=== PATIENT | male | born 1950 | race Caucasian/White ===

== ENCOUNTER → 2018-06-25 | Outpatient (CLI) | payer MEDICARE ==
[2018-06-25 14:21] LABS: Basophils # (A) 0.1 k/uL (0-0.2); Basophils % (A) 1 %; Eosinophils # (A) 0.2 k/uL (0-0.7); Eosinophils % (A) 2 %; HCT 39.7 % (39.0-53.0); HGB 13.1 gm/dL (13.0-17.5); Lymphocytes # (A) 1.9 k/uL (1.0-4.8); Lymphocytes % (A) 26 %; MCH 33.7 pg (25.0-35.0); MCHC 33.1 g/dL (31.0-37.0); MCV 101.8 fL (80.0-100.0); Macrocytosis Slight; Mean Platelet Volume 7.3; Monocytes # (A) 0.5 k/uL (0-1.0); Monocytes % (A) 7 %; Neutrophils # (A) 4.4 k/uL (1.3-7.7); Neutrophils % (A) 61 %; Platelet Count 285 k/uL (150-450); RDW 12.5 % (11.5-15.5); WBC 7.2 k/uL (3.8-10.6)
[2018-06-25 15:39] LABS: Cholesterol 162 mg/dL (<200); HDL Cholesterol 57 mg/dL (40-60); LDL Cholesterol,Calculated 83 mg/dL (0-99); Triglycerides 109 mg/dL (<150)
[2018-06-25 16:11] LABS: Prostate Specific Antigen 0.74 ng/mL (0.00-4.00)
[2018-06-28 08:32] LABS: ALT 44 U/L (21-72); AST 33 U/L (17-59); Albumin 3.9 g/dL (3.5-5.0); Alkaline Phosphatase 85 U/L (38-126); Anion Gap 11 mmol/L; Blood Urea Nitrogen 16 mg/dL (9-20); Calcium 9.9 mg/dL (8.4-10.2); Carbon Dioxide 24 mmol/L (22-30); Chloride 108 mmol/L (98-107); Glucose 99 mg/dL (74-99); Potassium 4.7 mmol/L (3.5-5.1); Sodium 143 mmol/L (137-145); Total Bilirubin 0.6 mg/dL (0.2-1.3)
== END ==
LOC: LABWHC1 13:52
PROVIDERS: ATTEND Physician Assistant
DX: I10 Essential (primary) hypertension (principal)
CPT/HCPCS: 36415; 80053; 80061; 84153; 84439; 84443; 85025

== ENCOUNTER → 2018-06-25 | Outpatient (CLI) | payer MEDICARE ==
[2018-06-25 14:20] LABS: Appearance,Urine Clear (Clear); Bilirubin,Urine Negative (Negative); Blood,Urine Negative (Negative); Color,Urine Yellow; Glucose,Urine (UA) Negative (Negative); Ketones,Urine Negative (Negative); Leukocyte Esterase,Urine Negative (Negative); Nitrite,Urine Negative (Negative); Protein,Urine Negative (Negative); Specific Gravity,Urine 1.008 (1.001-1.035); Urobilinogen,Urine <2.0 mg/dL (<2.0)
[2018-06-25 14:30] LABS: INR 0.9 (<1.2); Partial Thromboplastin Time 23.2 sec (22.0-30.0); Prothrombin Time 9.4 sec (9.0-12.0)
[2018-06-25 14:31] LABS: ALT 44 U/L (21-72); AST 32 U/L (17-59); Albumin 4.1 g/dL (3.5-5.0); Alkaline Phosphatase 87 U/L (38-126); Anion Gap 11 mmol/L; Blood Urea Nitrogen 15 mg/dL (9-20); Calcium 9.9 mg/dL (8.4-10.2); Carbon Dioxide 25 mmol/L (22-30); Chloride 106 mmol/L (98-107); Glucose 97 mg/dL (74-99); Potassium 4.7 mmol/L (3.5-5.1); Sodium 142 mmol/L (137-145); Total Bilirubin 0.7 mg/dL (0.2-1.3); Total Protein 7.1 g/dL (6.3-8.2)
== END | disposition home or self-care (01) ==
LOC: LABPAT 13:18
PROVIDERS: ATTEND Orthopaedic Surgery
DX: Z01.818 Encounter for other preprocedural examination (principal)
CPT/HCPCS: 36415; 80053; 80061; 81003; 84153; 84439; 84443; 85025; 85610; 85730; 86850; 86900; 86901; 87070

== ENCOUNTER 2018-07-06 07:00 | Inpatient (IN) | payer MEDICARE ==
[2018-06-29 09:10] VITALS: BMI 31.6
[~2018-07-06 07:00] MED LIST: ACETAMINOPHEN TAB 500 MG TAB PO ONE; DEXAMETHASONE SOD PHOSPHATE 10 MG/ML 1 ML VIAL IV ONE; MELOXICAM 7.5 MG TAB PO ONE; MIDAZOLAM 2 MG/2 ML VIAL IV PRN; ONDANSETRON 4 MG/2 ML VIAL IVP ONE; ROPIVACAINE 246.25 MG, EPINEPHrine 0.5 MG, KETOROLAC 30 MG, cloNIDine HCL/PF 80 MCG, WA... MISCELLANE ONE; TRANEXAMIC ACID 1,000 MG in SODIUM CHLORIDE 0.9% 50 ML IVPB ONE; ceFAZolin IN SWFI 2 GM/20 ML SYRINGE IVP ONE; fentaNYL (PF) 50 MCG/ML 2 ML AMP IV PRN
[2018-07-06] MEDS ORDERED: DIAZEPAM 5 MG TAB PO PRN ×2 (09:07)
[2018-07-06] MEDS ORDERED: HYDROcodone/APAP 5-325MG 1 EACH TAB PO PRN (09:07)
[2018-07-06] MEDS ORDERED: ONDANSETRON 4 MG/2 ML VIAL IVP PRN (09:07)
[2018-07-06] MEDS ORDERED: NALOXONE 0.4 MG/ML 1 ML VIAL IV PRN (09:07)
[2018-07-06] MEDS ORDERED: MAGNESIUM HYDROXIDE 2,400 MG/10 ML CUP PO PRN (09:07)
[2018-07-06] MEDS ORDERED: HYDROmorphone 1 MG/ML 1 ML SYRINGE IVP PRN ×3 (09:07)
[2018-07-06] MEDS ORDERED: hydrOXYzine PAMOATE 25 MG CAP PO PRN (09:07)
[2018-07-06] MEDS: LACTATED RINGERS 1,000 ML IV SCH (09:21)
[2018-07-06] MEDS ORDERED: LIDOCAINE 1% 20 ML VIAL (10MG/ML) FOR IV START INTRADERMA ONE (09:21)
[2018-07-06] MEDS ORDERED: ceFAZolin 3,000 MG in SODIUM CHLORIDE 0.9% IRRIGATIO 3,000 ML IRRIGATION ONE (10:27)
[2018-07-06] MEDS ORDERED: LACTATED RINGERS 1,000 ML IV ONE (12:13)
--- NOTE | 2018-07-06 12:16 | P.OP ---
Date of Procedure: 07/06/18 Preoperative Diagnosis: Severe osteoarthritis right hip Postoperative Diagnosis: Severe osteoarthritis right hip Procedure(s) Performed: Right total hip arthroplasty with a direct anterior approach Implants: Haider and nephew Polarstem size 8 Lateral Haider [employer] Nephew R3, 3 hole acetabular shell, 56 mm [employer] Nephew reflection 6.5 mm cancellus screw, 20 mm 2 Haider [employer] Nephew R3, XLPE 20 acetabular liner Haider [employer] Nephew Oxinium femoral head 36 m, +0 All components were press-fit. The articulation is Oxinium on polyethylene. Anesthesia: spinal Surgeon: Jaime Blackburn Substance Abuse Therapist #1: Malia Brasher Estimated Blood Loss (ml): 100 Pathology: other (Femoral head) Condition: stable Disposition: PACU Indications for Procedure: After failure of conservative treatment we discussed the surgical and nonsurgical treatment options at length. Patient wishes to proceed with a total hip arthroplasty with a direct anterior approach. Complications specific to this procedure were discussed at length, including but not limited to infection, leg length discrepancy, dislocation, and nerve injury. Patient is aware of all these complications and informed consent was obtained Operative Findings: The operative findings are consistent with severe osteoarthritis of the right hip Description of Procedure: Patient was seen and evaluated in the preoperative area, consent was reviewed, and the surgical site was marked with a skin marker. Patient was then brought to the operating room and given prophylactic antibiotics intravenously. 1 g of Tranexamic acid was also given. A spinal anesthetic was administered by the anesthesia department. The patient was then placed on the Aurora table with the bony prominences well-padded. The hip area was then prepped and draped in usual sterile fashion. A universal timeout was then performed, which confirmed the patient's name, surgical site, ALLERGIES, and procedure being performed. Next the incision site was located at 1 cm distal and 1 cm lateral to the anterior superior iliac spine. The skin and subcutaneous tissues were sharply incised. Incision was carefully dissected down to the fascia overlying the tensor fascia hai muscle. This fascia was then incised in line with the incision. Next, using blunt finger dissection, the tensor fascia hai muscle was dissected off its investing fascia. The muscle was then carefully retracted laterally with a cobra retractor over the lateral neck of the femur. Next, the circumflex vessels were identified and cauterized using the AquaMantis device. The anterior hip capsule was then exposed. The capsule was then opened and an inverted T fashion. Cobra retractors were then placed intracapsularly. The proximal femur was then visualized. The femoral neck was then osteotomized appropriate level above the lesser trochanter. Small amount of traction was placed with the Aurora table. A small wedge of bone was then removed from the remaining femoral head. Next, using a corkscrew femoral head was easily removed from the acetabulum. On gross visual inspection, the femoral head had complete loss of articular cartilage in multiple periarticular osteophytes. Attention was then turned to the acetabulum. the acetabulum was exposed and any remaining labrum was excised. Sequential reaming of the acetabulum was performed using fluoroscopic guidance. When the appropriate size was reached, a trial was then placed. The position and fit of the trial was checked with fluoroscopy. The trial was then removed. Then, using fluoroscopic guidance, the final implant was impacted at 20 of anteversion and 40 of abduction, and fully seated in the acetabulum. 2 screws were then placed in the acetabulum. Again fluoroscopy was used to check position of the screws. Next, the liner was then impacted, with a 20 elevated liner located in the anterior superior quadrant. Component locking was confirmed. Attention was then directed to the femur. With the aid of the Aurora table, the femur was externally rotated to approximately 130, extended, and abducted under the opposite leg. A side hook was then placed under the proximal femur, and the side hook elevator was used to elevate the proximal femur. Retractors were then placed. A capsular release was performed, as well as a release of the conjoined tendon, which afforded excellent visualization of the proximal femur. Next, a box osteotome was used to lateralize the proximal femur. A redye hand was then used to locate the femoral canal. Sequential broaching was then performed with appropriate size which afforded excellent fixation in the proximal femur. A trial was then placed with appropriate head and neck, and the hip was gently reduced with the aid of the Aurora table. Fluoroscopy was then used to check position of the components, as well as to ensure equal leg lengths. The hip was then gently dislocated and the trials were then removed. Final implants were then impacted and the hip was again reduced. Final fluoroscopic x-rays confirmed that the components were in anatomic position, as well as equal leg lengths. The hip was also taken through range of motion, and found to be stable. The hip was then copiously irrigated with antibiotic solution with pulsatile lavage. The hip was then irrigated with Irrisept solution. The soft tissues were then injected with a ropivacaine solution, which consisted of 246.25 mg of ropivacaine, 0.5 mg of epinephrine, 30 mg of Toradol, 80 g of clonidine, and 48.45 mL of sterile water, for a total of 100 mL of fluid injected. A second dose of 1 g of Tranexamic acid was also given. the fascia was then closed with 2-0 strata fix suture. The subcutaneous tissue was closed with 3-0 Vicryl. The subcuticular tissue was closed with 3-0 strata fix suture. The skin was then closed with Dermabond glue and a sterile silver dressing. The patient was then transferred to the recovery room in stable condition. The social research assistant ROSA Grimm was required due to the complexity of surgery, and the need for skilled surgical pathologist for positioning, draping, exposure, retraction, and closure of the wound.
--- NOTE | 2018-07-06 13:15 | XR ---
EXAMINATION TYPE: XR Hip Limited RT DATE OF EXAM: 07/06/2018 CLINICAL HISTORY: Right hip pain and osteoarthritis. TECHNIQUE: Single AP portable view of right hip is obtained immediately postoperatively. COMPARISON: None. FINDINGS: Metallic hardware from right hip arthroplasty is seen and appears satisfactory in alignment and position. Some acetabular irregular calcifications are present. IMPRESSION: Metallic hardware from right hip arthroplasty is satisfactory in position.
--- NOTE | 2018-07-06 17:39 | P.CONS ---
History of Present Illness - History of Present Illness 67-year-old male resting comfortably in bed pain is being managed well. Patient instructed to use incentive spirometry. Patient does have a history of hypertension. Patient is postoperative for right total hip anterior approach Review of Systems Musculoskeletal: right: hip pain Past Medical History Past Medical History: Hypertension, Osteoarthritis (OA) History of Any Multi-Drug Resistant Organisms: None Reported Past Surgical History: Orthopedic Surgery Additional Past Surgical History / Comment(s): bilat ctr, lt arm sx, bilat hand trigger finger releases, lt knee sx, colonoscopy Past Anesthesia/Blood Transfusion Reactions: No Reported Reaction Past Psychological History: No Psychological Hx Reported Smoking Status: Former smoker Past Alcohol Use History: Occasional Additional Past Alcohol Use History / Comment(s): QUIT SMOKING 2015 Past Drug Use History: None Reported - Past Family History Mother Family Medical History: No Reported History Medications and Allergies Home Medications Medication Instructions Recorded Confirmed Type Losartan Potassium 100 mg PO DAILY 06/29/18 07/06/18 History Allergies Allergy/AdvReac Type Severity Reaction Status Date / Time No Known Allergies Allergy Verified 07/06/18 13:48 Physical Exam Vitals: Vital Signs Temp Pulse Pulse Pulse Resp BP BP 07/06/18 14:53 62 115/67 07/06/18 14:45 79 105/59 07/06/18 14:30 79 104/65 07/06/18 14:15 74 99/59 07/06/18 14:00 84 107/60 07/06/18 13:45 75 103/56 07/06/18 13:30 66 98/57 07/06/18 13:15 70 95/52 07/06/18 13:10 78 16 116/56 07/06/18 13:00 97.8 F 62 16 101/55 07/06/18 12:55 69 16 110/56 07/06/18 12:40 97.1 F L 69 16 125/51 07/06/18 08:46 97.9 F 108 H 16 160/79 Pulse Ox 07/06/18 14:53 07/06/18 14:45 07/06/18 14:30 07/06/18 14:15 07/06/18 14:00 07/06/18 13:45 07/06/18 13:30 07/06/18 13:15 07/06/18 13:10 98 07/06/18 13:00 95 07/06/18 12:55 97 07/06/18 12:40 95 07/06/18 08:46 97 Intake and Output 07/06/18 07/06/18 07/06/18 06:59 14:59 22:59 Intake Total 1501 Output Total 100 Balance 1401 Intake: IV 1501 Output: Estimated Blood Loss 100 Other: Weight 108.862 kg - Constitutional General appearance: mild distress - EENT Eyes: PERRLA Ears: bilateral: normal - Neck Neck: normal ROM - Respiratory Respiratory: bilateral: CTA - Cardiovascular Rhythm: regular - Gastrointestinal General gastrointestinal: soft - Integumentary Integumentary: normal - Neurologic Neurologic: CNII-XII intact - Psychiatric Psychiatric: A&O x's 3, appropriate affect, intact judgment & insight Assessment and Plan Plan: Assessment Severe osteoarthritis right hip post right total hip arthroplasty History of hypertension Plan We'll monitor change in condition
[2018-07-06] MEDS: ASPIRIN 325 MG TAB PO SCH (20:46)
[2018-07-06] MEDS: ceFAZolin IN SWFI 2 GM/20 ML SYRINGE IVP SCH (20:46)
[2018-07-06] MEDS: SODIUM CHLORIDE 0.9% 1,000 ML IV SCH (20:49)
[2018-07-06] MEDS ORDERED: SENNOSIDES-DOCUSATE SODIUM 1 EACH TAB PO SCH (21:00)
[2018-07-06] MEDS ORDERED: CALCIUM CARBONATE 500 MG CHEWABLE PO PRN (22:12)
[2018-07-07] MEDS: SODIUM CHLORIDE 0.9% 1,000 ML IV SCH (01:29)
[2018-07-07] MEDS: ceFAZolin IN SWFI 2 GM/20 ML SYRINGE IVP SCH (03:07)
[2018-07-07] MEDS: LACTATED RINGERS 1,000 ML IV SCH (05:45)
[2018-07-07] MEDS: HYDROcodone/APAP 5-325MG 1 EACH TAB PO PRN ×2 (06:06→13:06)
[2018-07-07 07:37] VITALS: BP 123/72; PULSE 80; RESP 16; TEMP 98.4
[2018-07-07 07:47] LABS: Basophils % (A) 0 %; Eosinophils % (A) 0 %; HCT 33.2 % (39.0-53.0); HGB 10.7 gm/dL (13.0-17.5); Lymphocytes # (A) 1.7 k/uL (1.0-4.8); Lymphocytes % (A) 16 %; MCH 33.2 pg (25.0-35.0); MCHC 32.3 g/dL (31.0-37.0); MCV 102.8 fL (80.0-100.0); Macrocytosis Slight; Monocytes # (A) 0.8 k/uL (0-1.0); Monocytes % (A) 8 %; Neutrophils # (A) 8.2 k/uL (1.3-7.7); Neutrophils % (A) 75 %; Platelet Count 293 k/uL (150-450); RBC 3.23 m/uL (4.30-5.90); RDW 12.4 % (11.5-15.5); WBC 10.9 k/uL (3.8-10.6)
--- NOTE | 2018-07-07 08:26 | XR ---
EXAMINATION TYPE: XR Hip Limited RT, FL guidance operating room DATE OF EXAM: 07/06/2018 CLINICAL HISTORY: Right hip replacement for pain and osteoarthritis. TECHNIQUE: Fluoroscopy. Limited intraoperative views right hip COMPARISON: None. FINDINGS: Fluoroscopic guidance was provided during hip replacement procedure performed by Dr. Sekou severino. A total of 1.26 minutes of fluoroscopic time was utilized during the procedure and 3 spot image s was acquired. Intraoperative images acquired are not sent to PACS station at time of dictation for review. IMPRESSION: As Above.
[2018-07-07] MEDS ORDERED: LOSARTAN 50 MG TAB PO SCH (09:00)
[2018-07-07] MEDS ORDERED: MELOXICAM 7.5 MG TAB PO SCH (09:00)
[2018-07-07] MEDS: ASPIRIN 325 MG TAB PO SCH (09:09)
--- NOTE | 2018-07-07 09:22 | P.DS ---
Providers Date of admission: 07/06/18 08:16 Expected date of discharge: 07/07/18 Attending physician: Jaime Blackburn Consults: 07/06/18 09:07 Consult Physician Routine Consulting Provider: George Kang Consult Reason/Comments: medical management Do you want consulting provider notified?: Yes Primary care physician: George Kang - Discharge Diagnosis(es) (1) Primary osteoarthritis of right hip Current Visit: Yes Status: Acute (2) Status post total hip replacement, right Current Visit: Yes Status: Acute Hospital Course: This is a 67-year-old male with known history of degenerative arthritis of the right hip. The patient presents for evaluation. After discussion and consideration patient elects to proceed with total hip arthroplasty. The patient is seen preoperatively by Dr. Blackburn and medically cleared for surgery by their primary care physician. Patient is admitted to [facility] on 07/06/2018 for total hip arthroplasty. The procedures performed without complication or sequelae. The patient is doing well postoperatively. Labs and vital signs are stable on day of discharge. On day of discharge patient's hip incision is healing well. There is minimal erythema. There is no drainage noted at this time. There is minimal soft tissue swelling to the hip and thigh. Patient has full foot and ankle motion without difficulty or pain. Neurovascular status to the right lower extremity is intact. Patient is discharged home in good condition. Please see med rec for accurate list of home medications. Plan - Discharge Summary Discharge Rx Participant: Yes New Discharge Prescriptions: New Aspirin 325 mg PO BID #60 tab HYDROcodone/APAP 5-325MG [[place] 5-325] 1 - 2 tab PO Q4-6H PRN #84 tab PRN Reason: Pain Sennosides [Senokot] 1 tab PO BID #60 tablet No Action Losartan Potassium 100 mg PO DAILY Discharge Medication List Losartan Potassium 100 mg PO DAILY 06/29/18 [History] Aspirin 325 mg PO BID #60 tab 07/07/18 [Rx] HYDROcodone/APAP 5-325MG [[place] 5-325] 1 - 2 tab PO Q4-6H PRN #84 tab 07/07/18 [ Rx] Sennosides [Senokot] 1 tab PO BID #60 tablet 07/07/18 [Rx] Follow up Appointment(s)/Referral(s): Jaime Blackburn DO [Doctor of Osteopathic Medicine] - 2 Weeks Activity/Diet/Wound Care/Special Instructions: Weightbearing as tolerated with walker Leave dressing intact. Dressing may be removed by home care nurse in 10 days. May shower with dressing on. Follow-up with [facility] in 2 weeks, please call with any questions or concerns [phone] Discharge Disposition: HOME WITH HOME HEALTH SERVICES
--- NOTE | 2018-07-07 11:38 | P.PN ---
Subjective Patient sitting up in bed minimal of discomfort to have Objective - Vital Signs Vital signs: Vital Signs Temp 98.4 F 07/07/18 07:36 Pulse 80 07/07/18 07:36 Resp 16 07/07/18 07:36 BP 123/72 07/07/18 07:36 Pulse Ox 95 07/07/18 07:36 Intake & Output 07/06/18 07/07/18 07/07/18 18:59 06:59 18:59 Intake Total 1741 812.5 Output Total 100 50 Balance 1641 812.5 -50 Weight 108.862 kg Intake: IV 1501 Intake, IV Titration 812.5 Amount Sodium Chloride 0.9% 1, 812.5 000 ml @ 65 mls/hr IV . [id number] VIVI Rx#:[id number] Oral 240 Output: Urine 50 Estimated Blood Loss 100 Other: Voiding Method Toilet Urinal # Voids 2 - Constitutional General appearance: Present: mild distress - EENT Eyes: Present: PERRLA Ears: bilateral: normal - Neck Neck: Present: normal ROM - Respiratory Respiratory: bilateral: CTA - Cardiovascular Rhythm: regular - Gastrointestinal General gastrointestinal: Present: soft - Integumentary Integumentary: Present: normal - Neurologic Neurologic: Present: CNII-XII intact - Psychiatric Psychiatric: Present: A&O x's 3, appropriate affect, intact judgment & insight - Labs CBC & Chem 7: 07/07/18 06:47 Labs: Abnormal Lab Results - Last 24 Hours (Table) 07/07/18 Range/Units 06:47 WBC 10.9 H (3.8-10.6) k/uL RBC 3.23 L (4.30-5.90) m/uL Hgb 10.7 L (13.0-17.5) gm/dL Hct 33.2 L (39.0-53.0) % MCV 102.8 H (80.0-100.0) fL Neutrophils # 8.2 H (1.3-7.7) k/uL Assessment and Plan Plan: Assessment Severe osteoarthritis right hip Post right hip total arthroplasty anterior history of hypertension stable Plan Patient stable for discharge
== END 2018-07-07 13:32 | disposition home health service (06) | DRG 470 ==
LOC: 2ORMAIN 08:16 → 3SUR 12:42
PROVIDERS: ADMIT Orthopaedic Surgery; ATTEND Orthopaedic Surgery
PROC: 0SR906A Replacement of Right Hip Joint with Oxidized Zirconium on Polyethylene Synthetic Substitute, Uncemented, Open Approach (ICD-10-PCS; principal; 2018-07-06 10:15)
DX: M16.11 Unilateral primary osteoarthritis, right hip (principal); I10 Essential (primary) hypertension; Z87.891 Personal history of nicotine dependence
CPT/HCPCS: 73501; 85025; 86850; 86891; 86900; 86901; 88300

== ENCOUNTER → 2018-07-15 | Outpatient (CLI) | payer MEDICARE ==
--- NOTE | 2018-07-15 15:11 | US ---
EXAMINATION TYPE: US venous doppler duplex LE BI DATE OF EXAM: 07/15/2018 3:00 PM COMPARISON: US CLINICAL HISTORY: Edema R60.0. right lower leg redness post total hip SIDE PERFORMED: Bilateral TECHNIQUE: The lower extremity deep venous system is examined utilizing real time linear array sonog kerri with graded compression, doppler sonography and color-flow sonography. VESSELS IMAGED: External Iliac Vein (EIV) Common Femoral Vein Deep Femoral Vein Greater Saphenous Vein * Femoral Vein Popliteal Vein Small Saphenous Vein * Proximal Calf Veins (* superficial vessels) Right Leg: Negative for DVT Left Leg: Negative for DVT fluid collection left pop fossa measures 4.4 x 3.1 cm. IMPRESSION: 1. Bilateral lower extremity ultrasound negative for deep venous thrombosis. 2. Left popliteal fossa cyst.
== END | disposition home or self-care (01) ==
LOC: RADUSWWP 14:32
PROVIDERS: ATTEND Family Medicine
DX: M71.22 Synovial cyst of popliteal space [Baker], left knee (principal); R60.0 Localized edema
CPT/HCPCS: 93970

== ENCOUNTER → 2018-08-27 | Outpatient (CLI) | payer MEDICARE ==
[2018-08-27 12:40] LABS: Basophils % (A) 0 %; Eosinophils # (A) 0.2 k/uL (0-0.7); Eosinophils % (A) 2 %; HCT 39.4 % (39.0-53.0); HGB 12.6 gm/dL (13.0-17.5); Lymphocytes # (A) 1.7 k/uL (1.0-4.8); Lymphocytes % (A) 21 %; MCH 31.9 pg (25.0-35.0); MCV 99.5 fL (80.0-100.0); Mean Platelet Volume 7.1; Monocytes # (A) 0.6 k/uL (0-1.0); Monocytes % (A) 7 %; Neutrophils # (A) 5.5 k/uL (1.3-7.7); Neutrophils % (A) 67 %; Platelet Count 358 k/uL (150-450); RBC 3.96 m/uL (4.30-5.90); RDW 13.1 % (11.5-15.5); WBC 8.1 k/uL (3.8-10.6)
[2018-08-27 14:38] LABS: Erythrocyte Sedimentation Rate 52 mm/hr (0-15)
[2018-08-27 18:41] LABS: Albumin 4.2 g/dL (3.80-4.90); Albumin/Globulin Ratio 1.62 (1.20-2.10); Anion Gap 9.5 mmol/L (4.00-12.00); C Reactive Protein 4.5 mg/dL (0.0-0.8); Calcium 9.5 mg/dL (8.7-10.3); Carbon Dioxide 23.5 mmol/L (21.6-31.8); Globulin 2.6 g/dL (2.1-3.7); Total Bilirubin 0.6 mg/dL (0.3-1.2); Total Protein 6.8 g/dL (6.2-8.2)
== END | disposition home or self-care (01) ==
LOC: LABWHC1 11:57
PROVIDERS: ATTEND Internal Medicine Infectious Disease
DX: L03.115 Cellulitis of right lower limb (principal)
CPT/HCPCS: 36415; 80053; 85025; 85652; 86038; 86140

== ENCOUNTER 2018-10-06 12:00 | Emergency (ER) | payer MEDICARE ==
[2018-10-06 12:28] VITALS: BP 139/61; PULSE 86; RESP 18; TEMP 97.2
--- NOTE | 2018-10-06 12:49 | ED ---
General Adult HPI <Alberto Ye - Last Filed: 10/06/18 15:06> - General Source: patient, RN notes reviewed Mode of arrival: ambulatory Limitations: no limitations <Connie Stroud - Last Filed: 10/06/18 21:44> - General Chief complaint: Extremity Problem,Nontraumatic Stated complaint: Hip pain - History of Present Illness Initial comments: Patient is a 67 year old male with history of osteoarthritis s/p right hip replacement with complaint of left hip pain since last night. He reports that he has had stiffness in the left hip for a while, but not pain like he had last night. He reports taking Tylenol at 3 am today. He reports that he will be seeing an orthopedic doctor this Thursday for his left knee. He is using his walker today, but normally uses a cane. He reports that he is not here for his knee, only his left hip. Denies trauma, numbness, tingling, bowel or bladder incontinence, saddle anesthesia, back pain, abdominal pain, chest pain, shortness of breath, fever, chills, or any other complaints. (Connie Stroud ) - Related Data Home Medications Medication Instructions Recorded Confirmed Losartan Potassium 100 mg PO DAILY 06/29/18 10/06/18 Previous Rx's Medication Instructions Recorded Ketorolac [Toradol] 10 mg PO Q6HR PRN 4 Days tab 10/06/18 Allergies Allergy/AdvReac Type Severity Reaction Status Date / Time No Known Allergies Allergy Verified 10/06/18 12:21 Review of Systems ROS Other: All systems not noted in ROS Statement are negative. <Alberto Ye - Last Filed: 10/06/18 15:06> ROS Other: All systems not noted in ROS Statement are negative. <Connie Stroud - Last Filed: 10/06/18 21:44> ROS Statement: Those systems with pertinent positive or pertinent negative responses have been documented in the HPI. Past Medical History Past Medical History: Hypertension, Osteoarthritis (OA) History of Any Multi-Drug Resistant Organisms: None Reported Past Surgical History: Orthopedic Surgery Additional Past Surgical History / Comment(s): bilat ctr, lt arm sx, bilat hand trigger finger releases, lt knee sx, colonoscopy Past Anesthesia/Blood Transfusion Reactions: No Reported Reaction Past Psychological History: No Psychological Hx Reported Smoking Status: Former smoker Past Alcohol Use History: Occasional Past Drug Use History: None Reported - Past Family History Mother Family Medical History: No Reported History <Connie Stroud - Last Filed: 10/06/18 21:44> General Exam Limitations: no limitations General appearance: alert, in no apparent distress Head exam: Present: atraumatic, normocephalic Eye exam: Present: normal appearance Respiratory exam: Present: normal lung sounds bilaterally Cardiovascular Exam: Present: regular rate, normal rhythm Extremities exam: Present: full ROM, normal capillary refill, other (DP pulses palpable and strong bilaterally. ) Neurological exam: Present: alert, oriented X3, reflexes normal (Patellar tendon.) Psychiatric exam: Present: normal affect, normal mood Skin exam: Present: warm, dry, normal color <Connie Stroud - Last Filed: 10/06/18 21:44> Course <Alberto Ye - Last Filed: 10/06/18 15:06> <Connie Stroud - Last Filed: 10/06/18 21:44> Vital Signs 10/06/18 12:22 Temperature 97.2 F L Pulse Rate 86 Respiratory 18 Rate Blood Pressure 139/61 O2 Sat by Pulse 99 Oximetry - Reevaluation(s) Reevaluation #1: 10/06/18 15:06 PA supervision: I proceeded [id number] evaluation the patient did discuss the findings with him and his was present. Physical exam patient has some left lateral hip discomfort to palpation x-ray show no acute findings. Patient does have an appointment to see Dr. Blackburn in 2 days. He will address the knee pain at that time with his orthopedic surgeon. I do agree with the assessment and plan. (Alberto Ye) Medical Decision Making <Alberto Ye - Last Filed: 10/06/18 15:06> <Connie Stroud - Last Filed: 10/06/18 21:44> - Medical Decision Making Patient given Toradol here for pain. Left hip x-ray revealed osteoarthritis. Will prescribe Toradol. Patient has an appointment with orthopedics. Case discussed in detail with attending physician Dr. Ye. (Connie Stroud) Disposition <Alberto Ye - Last Filed: 10/06/18 15:06> Is patient prescribed a controlled substance at d/c from ED?: No <Connie Stroud - Last Filed: 10/06/18 21:44> Clinical Impression: Osteoarthritis Disposition: HOME SELF-CARE Condition: Good Instructions: Osteoarthritis (ED) Additional Instructions: Follow-up with your PCP in 1-2 days. Please attend your appointment on Thursday with your Orthopedic physician. Return to the ER if your symptoms worsen or any other concerns. Prescriptions: Ketorolac [Toradol] 10 mg PO Q6HR PRN 4 Days tab PRN Reason: Pain Referrals: George Kang MD [Primary Care Provider] - 1-2 days
[2018-10-06] MEDS ORDERED: KETOROLAC 60 MG/2 ML VIAL IM STA (12:50)
--- NOTE | 2018-10-06 13:52 | XR ---
EXAMINATION TYPE: XR Hip Complete LT DATE OF EXAM: 10/06/2018 CLINICAL HISTORY: pain TECHNIQUE: AP and frogleg views of the left hip are obtained. COMPARISON: None. FINDINGS: There is no acute fracture/dislocation evident. The joint space appears at least moderat rocky narrowed. Hypertrophic changes superior acetabular lip resulting in femoral acetabular impingemen t. The overlying soft tissue appears unremarkable. IMPRESSION: 1. There is no acute fracture or dislocation.ICD 10 NO FRACTURE, INITIAL EVALUATION
== END 2018-10-06 15:32 | disposition home or self-care (01) ==
LOC: EC 12:00
DX: M16.0 Bilateral primary osteoarthritis of hip (principal); I10 Essential (primary) hypertension; Z87.891 Personal history of nicotine dependence; Z79.899 Other long term (current) drug therapy; Z96.641 Presence of right artificial hip joint
CPT/HCPCS: 99283; 96372; 73502; J1885

== ENCOUNTER → 2018-11-26 | Outpatient (CLI) | payer MEDICARE ==
[2018-11-26 19:02] LABS: Anion Gap 8.3 mmol/L (4.00-12.00); Calcium 9.6 mg/dL (8.7-10.3); Carbon Dioxide 20.7 mmol/L (21.6-31.8); Potassium 4.8 mmol/L (3.5-5.5)
== END | disposition home or self-care (01) ==
LOC: LABWHC1 12:57
PROVIDERS: ATTEND Internal Medicine Infectious Disease
DX: L03.115 Cellulitis of right lower limb (principal)
CPT/HCPCS: 36415; 80048

== ENCOUNTER → 2019-04-22 | Outpatient (CLI) | payer MEDICARE ==
[2019-04-22 12:33] LABS: HCT 37.2 % (39.0-53.0); MCH 32.7 pg (25.0-35.0); MCHC 32.3 g/dL (31.0-37.0); MCV 101.2 fL (80.0-100.0); Platelet Count 292 k/uL (150-450); RBC 3.67 m/uL (4.30-5.90); RDW 12.3 % (11.5-15.5); WBC 7.7 k/uL (3.8-10.6)
[2019-04-22 12:40] LABS: Albumin 4.2 g/dL (3.5-5.0); Calcium 10.2 mg/dL (8.4-10.2); Total Bilirubin 0.5 mg/dL (0.2-1.3); Total Protein 7.1 g/dL (6.3-8.2)
[2019-04-22 12:45] LABS: INR 0.9 (<1.2); Partial Thromboplastin Time 24.5 sec (22.0-30.0); Prothrombin Time 9.5 sec (9.0-12.0)
== END ==
LOC: LABPAT 11:20
PROVIDERS: ATTEND Orthopaedic Surgery
DX: Z01.812 Encounter for preprocedural laboratory examination (principal); M16.11 Unilateral primary osteoarthritis, right hip
CPT/HCPCS: 80053; 85027; 85610; 85730; 87070

== ENCOUNTER 2019-05-03 07:49 | Inpatient (IN) | payer MEDICARE ==
[~2019-05-03 07:49] MED LIST changes: +HYDROmorphone 0.5 MG/0.5 ML SYRINGE IVP PRN; +TRANEXAMIC ACID 1,000 MG in SODIUM CHLORIDE 0.9% 100 ML IVPB ONE; -TRANEXAMIC ACID 1,000 MG in SODIUM CHLORIDE 0.9% 50 ML IVPB ONE; -ceFAZolin IN SWFI 2 GM/20 ML SYRINGE IVP ONE; -fentaNYL (PF) 50 MCG/ML 2 ML AMP IV PRN
[2019-05-03] MEDS ORDERED: LIDOCAINE 1% 20 ML VIAL (10MG/ML) FOR IV START INTRADERMA ONE (08:20)
[2019-05-03] MEDS: LACTATED RINGERS 1,000 ML IV SCH (08:24)
[2019-05-03] MEDS ORDERED: HYDROmorphone 0.5 MG/0.5 ML SYRINGE IVP PRN ×3 (08:47)
[2019-05-03] MEDS ORDERED: hydrOXYzine PAMOATE 25 MG CAP PO PRN (08:47)
[2019-05-03] MEDS ORDERED: HYDROcodone/APAP 5-325MG 1 EACH TAB PO PRN ×2 (08:47)
[2019-05-03] MEDS ORDERED: MAGNESIUM HYDROXIDE 2,400 MG/10 ML CUP PO PRN (08:47)
[2019-05-03] MEDS ORDERED: NALOXONE 0.4 MG/ML 1 ML VIAL IV PRN (08:47)
[2019-05-03] MEDS ORDERED: ONDANSETRON 4 MG/2 ML VIAL IVP PRN (08:47)
[2019-05-03] MEDS ORDERED: DIAZEPAM 5 MG TAB PO PRN (08:47)
[2019-05-03 09:12] LABS: Calcium 10.1 mg/dL (8.4-10.2); Potassium 4.6 mmol/L (3.5-5.1)
[2019-05-03] MEDS ORDERED: SODIUM CHLORIDE 0.9% 100 ML BAG ONE (09:14)
[2019-05-03] MEDS ORDERED: diphenhydrAMINE 50 MG/ML 1 ML VIAL ONE (09:14)
[2019-05-03] MEDS ORDERED: GLYCOPYRROLATE 0.2 MG/ML 2 ML VIAL ONE (09:14)
[2019-05-03] MEDS ORDERED: MIDAZOLAM 2 MG/2 ML VIAL ONE (09:14)
[2019-05-03] MEDS ORDERED: HEPARIN SODIUM,PORCINE 10,000 UNIT/ML 1 ML VIAL ONE (09:14)
[2019-05-03] MEDS ORDERED: PROPOFOL 10 MG/ML 20 ML VIAL IV ONE (09:14)
[2019-05-03] MEDS ORDERED: LACTATED RINGERS 1,000 ML BAG IV ONE (09:14)
[2019-05-03] MEDS ORDERED: TRANEXAMIC ACID 1,000 MG/10 ML VIAL ONE (09:14)
[2019-05-03] MEDS ORDERED: fentaNYL (PF) 50 MCG/ML 2 ML AMP ONE (09:14)
[2019-05-03] MEDS ORDERED: PHENYLEPHRINE-0.9% NACL SYG 1 MG/10 ML SYRINGE ONE (09:14)
[2019-05-03] MEDS ORDERED: ceFAZolin 3,000 MG in SODIUM CHLORIDE 0.9% IRRIGATIO 3,000 ML IRRIGATION ONE (09:19)
[2019-05-03] MEDS ORDERED: LACTATED RINGERS 1,000 ML IV ONE (10:31)
--- NOTE | 2019-05-03 10:49 | P.OP ---
Date of Procedure: 05/03/19 Preoperative Diagnosis: Severe osteoarthritis left hip Postoperative Diagnosis: Severe osteoarthritis left hip Procedure(s) Performed: Left total hip arthroplasty with a direct anterior approach Implants: Haider and nephew Polarstem size 8 lateral [employer]ider [employer] Nephew R3, 3 hole acetabular shell, 56 mm [employer]hew reflection 6.5 mm cancellus screw, 20 mm 2 [employer]hew R3, XLPE 20 acetabular liner Haider [employer] Nephew Oxinium femoral head 36 m, +0 All components were press-fit. The articulation is Oxinium on polyethylene. Anesthesia: spinal Surgeon: Jaime Blackburn Deck Engine Operator #1: Malia Brasher Estimated Blood Loss (ml): 100 Pathology: other (Femoral head) Condition: stable Disposition: PACU Indications for Procedure: After failure of conservative treatment we discussed the surgical and nonsurgical treatment options at length. Patient wishes to proceed with a total hip arthroplasty with a direct anterior approach. Complications specific to this procedure were discussed at length, including but not limited to infection, leg length discrepancy, dislocation, and nerve injury. Patient is aware of all these complications and informed consent was obtained Operative Findings: The operative findings are consistent with severe osteoarthritis of the left hip Description of Procedure: Patient was seen and evaluated in the preoperative area, consent was reviewed, and the surgical site was marked with a skin marker. Patient was then brought to the operating room and given prophylactic antibiotics intravenously. 1 g of Tranexamic acid was also given. A spinal anesthetic was administered by the anesthesia department. The patient was then placed on the Lovely table with the bony prominences well-padded. The hip area was then prepped and draped in usual sterile fashion. A universal timeout was then performed, which confirmed the patient's name, surgical site, ALLERGIES, and procedure being performed. Next the incision site was located at 1 cm distal and 1 cm lateral to the anterior superior iliac spine. The skin and subcutaneous tissues were sharply incised. Incision was carefully dissected down to the fascia overlying the tensor fascia hai muscle. This fascia was then incised in line with the incision. Next, using blunt finger dissection, the tensor fascia hai muscle was dissected off its investing fascia. The muscle was then carefully retracted laterally with a cobra retractor over the lateral neck of the femur. Next, the circumflex vessels were identified and cauterized using the AquaMantis device. The anterior hip capsule was then exposed. The capsule was then opened and an inverted T fashion. Cobra retractors were then placed intracapsularly. The proximal femur was then visualized. The femoral neck was then osteotomized appropriate level above the lesser trochanter. Small amount of traction was placed with the Lovely table. A small wedge of bone was then removed from the remaining femoral head. Next, using a corkscrew femoral head was easily removed from the acetabulum. On gross visual inspection, the femoral head had complete loss of articular cartilage in multiple periarticular osteophytes. Attention was then turned to the acetabulum. the acetabulum was exposed and any remaining labrum was excised. Sequential reaming of the acetabulum was performed using fluoroscopic guidance. When the a ppropriate size was reached, a trial was then placed. The position and fit of the trial was checked with fluoroscopy. The trial was then removed. Then, using fluoroscopic guidance, the final implant was impacted at 20 of anteversion and 40 of abduction, and fully seated in the acetabulum. 2 screws were then placed in the acetabulum. Again fluoroscopy was used to check position of the screws. Next, the liner was then impacted, with a 20 elevated liner located in the anterior superior quadrant. Component locking was confirmed. Attention was then directed to the femur. With the aid of the Lovely table, the femur was externally rotated to approximately 130, extended, and abducted under the opposite leg. A side hook was then placed under the proximal femur, and the side hook elevator was used to elevate the proximal femur. Retractors were then placed. A capsular release was performed, as well as a release of the conjoined tendon, which afforded excellent visualization of the proximal femur. Next, a box osteotome was used to lateralize the proximal femur. A buncher hand was then used to locate the femoral canal. Sequential broaching was then performed with appropriate size which afforded excellent fixation in the proximal femur. A trial was then placed with appropriate head and neck, and the hip was gently reduced with the aid of the Lovely table. Fluoroscopy was then used to check position of the components, as well as to ensure equal leg lengths. The hip was then gently dislocated and the trials were then removed. Final implants were then impacted and the hip was again reduced. Final fluoroscopic x-rays confirmed that the components were in anatomic position, as well as equal leg lengths. The hip was also taken through range of motion, and found to be st able. The hip was then copiously irrigated with antibiotic solution with pulsatile lavage. The hip was then irrigated with Irrisept solution. The soft tissues were then injected with a ropivacaine solution, which consisted of 246.25 mg of ropivacaine, 0.5 mg of epinephrine, 30 mg of Toradol, 80 g of clonidine, and 48.45 mL of sterile water, for a total of 100 mL of fluid injected. A second do se of 1 g of Tranexamic acid was also given. the fascia was then closed with 2-0 strata fix suture. The subcutaneous tissue was closed with 3-0 Vicryl. The subcuticular tissue was closed with 3-0 strata fix suture. The skin was then closed with Dermabond glue and a sterile silver dressing. The patient was then transferred to the recovery room in stable condition. The assistant store leader ROSA Grimm was required due to the complexity of surgery, and the need for skilled surgical pathologist for positioning, draping, exposure, retraction, and closure of the wound.
--- NOTE | 2019-05-03 12:05 | FL ---
EXAMINATION TYPE: FL guidance operating room, XR Hip Limited LT DATE OF EXAM: 05/03/2019 CLINICAL HISTORY: Left hip pain. TECHNIQUE: Fluoroscopy. COMPARISON: None. FINDINGS: Fluoroscopic guidance was provided during pain relief procedure performed by Dr. Blackburn. A total of 1 minute and 12 seconds of fluoroscopic time was utilized during the procedure and two s pot images are acquired during left hip arthroplasty. IMPRESSION: As Above.
[2019-05-03 15:03] VITALS: BMI 33.7
[2019-05-03] MEDS: SODIUM CHLORIDE 0.9% 1,000 ML IV SCH ×2 (15:13→23:54)
--- NOTE | 2019-05-03 16:54 | P.CONS ---
History of Present Illness - History of Present Illness 68-year-old male post total hip arthroplasty. History of right hip arthropla sty. Patient has medical history of hypertension Review of Systems Musculoskeletal: left: hip pain Past Medical History Past Medical History: Hypertension, Osteoarthritis (OA) History of Any Multi-Drug Resistant Organisms: None Reported Past Surgical History: Orthopedic Surgery Additional Past Surgical History / Comment(s): bilat ctr, lt arm sx, bilat hand trigger finger releases, lt knee sx, colonoscopy total right hip Past Anesthesia/Blood Transfusion Reactions: No Reported Reaction Smoking Status: Former smoker - Past Family History Mother Family Medical History: No Reported History Medications and Allergies Home Medications Medication Instructions Recorded Confirmed Type Losartan Potassium 100 mg PO DAILY 06/29/18 05/03/19 History Triamterene-Hctz 37.5-25Mg 1 cap PO DAILY 04/27/19 05/03/19 History [Dyazide 37.5-25 Capsule] Allergies Allergy/AdvReac Type Severity Reaction Status Date / Time No Known Allergies Allergy Verified 05/03/19 14:58 Physical Exam Vitals: Vital Signs Temp Pulse Pulse Resp BP Pulse Ox 05/03/19 14:30 62 16 124/74 99 05/03/19 14:00 54 L 16 116/69 99 05/03/19 13:30 54 L 16 114/63 98 05/03/19 13:00 63 16 123/62 98 05/03/19 12:30 57 L 16 109/59 98 05/03/19 12:00 68 16 118/60 97 05/03/19 11:45 65 16 114/57 97 05/03/19 11:30 66 16 110/61 96 05/03/19 11:15 66 16 103/56 96 05/03/19 11:09 97.5 F L 82 18 108/55 98 05/03/19 08:13 98.1 F 78 15 143/65 98 Intake and Output 05/03/19 05/03/19 05/03/19 06:59 14:59 22:59 Intake Total 1351 Output Total 100 Balance 1251 Intake: IV 1351 Output: Estimated Blood Loss 100 - Constitutional General appearance: mild distress - EENT Eyes: PERRLA Ears: bilateral: normal - Neck Neck: normal ROM - Respiratory Respiratory: bilateral: CTA - Cardiovascular Rhythm: regular - Gastrointestinal General gastrointestinal: soft - Integumentary Integumentary: normal - Neurologic Neurologic: CNII-XII intact - Psychiatric Psychiatric: A&O x's 3, appropriate affect, intact judgment & insight Results CBC & Chem 7: 05/03/19 08:25 Labs: Abnormal Lab Results - Last 24 Hours (Table) 05/03/19 Range/Units 08:25 Chloride 108 H (98-107) mmol/L BUN 34 H (9-20) mg/dL Creatinine 1.70 H (0.66-1.25) mg/dL Glucose 110 H (74-99) mg/dL Assessment and Plan Plan: Assessment Osteoarthritis post left total hip arthroplasty\ History of hypertension Plan We will monitor for hypertension and change in condition
[2019-05-03] MEDS: ASPIRIN 325 MG TAB PO SCH (20:50)
[2019-05-03] MEDS ORDERED: SENNOSIDES-DOCUSATE SODIUM 1 EACH TAB PO SCH (21:00)
[2019-05-04] MEDS: LACTATED RINGERS 1,000 ML IV SCH (01:44)
[2019-05-04 07:11] VITALS: BP 136/54; PULSE 76; RESP 16; TEMP 98.2
--- NOTE | 2019-05-04 07:52 | XR ---
PROCEDURE: XR Hip Limited LT - one view DATE AND TIME: 05/03/2019 11:22 AM CLINICAL INDICATION: Status post hip surgery, assess surgical alignment TECHNIQUE: AP portable COMPARISON: None FINDINGS: Left hip prosthesis is in place, with anatomic positioning and alignment documented. No une xpected findings. IMPRESSION: Status post hip surgery, assess surgical alignment
[2019-05-04] MEDS: ASPIRIN 325 MG TAB PO SCH (08:19)
--- NOTE | 2019-05-04 08:52 | P.DS ---
Providers Date of admission: 05/03/19 07:49 Expected date of discharge: 05/04/19 Attending physician: Jaime Blackburn Consults: 05/03/19 08:47 Consult Physician Routine Consulting Provider: George Kang Consult Reason/Comments: medical management Do you want consulting provider notified?: Yes Primary care physician: George Kang - Discharge Diagnosis(es) (1) Osteoarthritis of left hip Current Visit: Yes Status: Acute (2) Status post total hip replacement, left Current Visit: Yes Status: Acute Hospital Course: This is a 68-year-old male with known history of degenerative arthritis of the left hip. The patient presents for evaluation. After discussion and consideration patient elects to proceed with total hip arthroplasty. The patient is seen preoperatively by Dr. Blackburn and medically cleared for surgery by their primary care physician. Patient is admitted to [facility] on 05/03/2019 for total hip arthroplasty. The procedures performed without complication or sequelae. The patient is doing well postoperatively. Labs and vital signs are stable on day of discharge. On day of discharge patient's hip incision is healing well. There is minimal erythema. There is no drainage noted at this time. There is minimal soft tissue swelling to the hip and thigh. Patient has full foot and ankle motion without difficulty or pain. Calf is soft and nontender to palpation. Ne urovascular status to the left lower extremity is intact. Patient is discharged home in good condition. Opioid start talking form is reviewed and signed at patient bedside. Please see med rec for accurate list of home medications. Plan - Discharge Summary Discharge Rx Participant: Yes New Discharge Prescriptions: New Aspirin 325 mg PO BID #60 tab HYDROcodone/APAP 5-325MG [[place] 5-325] 1 - 2 tab PO Q6HR PRN #56 tab PRN Reason: Pain Sennosides [Senokot] 1 tab PO BID #60 tablet No Action Losartan Potassium 100 mg PO DAILY Triamterene-Hctz 37.5-25Mg [Dyazide 37.5-25 Capsule] 1 cap PO DAILY Discharge Medication List Losartan Potassium 100 mg PO DAILY 06/29/18 [History] Triamterene-Hctz 37.5-25Mg [Dyazide 37.5-25 Capsule] 1 cap PO DAILY 04/27/19 [History] Aspirin 325 mg PO BID #60 tab 05/04/19 [Rx] HYDROcodone/APAP 5-325MG [[place] 5-325] 1 - 2 tab PO Q6HR PRN #56 tab 05/04/19 [Rx] Sennosides [Senokot] 1 tab PO BID #60 tablet 05/04/19 [Rx] Follow up Appointment(s)/Referral(s): Jaime Blackburn DO [Doctor of Osteopathic Medicine] - 1 Week Activity/Diet/Wound Care/Special Instructions: Weightbearing as tolerated with walker. Leave dressing intact. Dressing may be removed by home care nurse or by patient in 10 days. May shower with dressing on. Please follow-up with [facility] in 2 weeks and call with any questions or concerns, . Discharge Disposition: HOME WITH HOME HEALTH SERVICES
[2019-05-04] MEDS ORDERED: TRIAMTERENE-HCTZ 37.5-25MG 1 EACH CAP PO SCH (09:00)
[2019-05-04] MEDS ORDERED: MELOXICAM 7.5 MG TAB PO SCH (09:00)
[2019-05-04] MEDS ORDERED: LOSARTAN 50 MG TAB PO SCH (09:00)
[2019-05-04 09:13] LABS: Basophils % (A) 0 %; Eosinophils % (A) 0 %; HGB 10.8 gm/dL (13.0-17.5); Lymphocytes # (A) 1.7 k/uL (1.0-4.8); Lymphocytes % (A) 16 %; MCH 34.8 pg (25.0-35.0); MCHC 33.9 g/dL (31.0-37.0); MCV 102.7 fL (80.0-100.0); Macrocytosis Slight; Mean Platelet Volume 7.7; Monocytes # (A) 0.5 k/uL (0-1.0); Monocytes % (A) 5 %; Neutrophils # (A) 8.7 k/uL (1.3-7.7); Neutrophils % (A) 78 %; Platelet Count 207 k/uL (150-450); RBC 3.12 m/uL (4.30-5.90); RDW 13.2 % (11.5-15.5); WBC 11.2 k/uL (3.8-10.6)
--- NOTE | 2019-05-04 15:25 | P.PN ---
Progress Note - Text Patient's home medications reordered. Patient is cleared medically for discharge
== END 2019-05-04 12:12 | disposition home health service (06) | DRG 470 ==
LOC: 2ORMAIN 07:49 → 4SSUR 14:13
PROVIDERS: ADMIT Orthopaedic Surgery; ATTEND Orthopaedic Surgery
PROC: 0SRB06A Replacement of Left Hip Joint with Oxidized Zirconium on Polyethylene Synthetic Substitute, Uncemented, Open Approach (ICD-10-PCS; principal; 2019-05-03 09:15)
DX: M16.12 Unilateral primary osteoarthritis, left hip (principal); I10 Essential (primary) hypertension; Z96.641 Presence of right artificial hip joint; Z87.891 Personal history of nicotine dependence; Z98.890 Other specified postprocedural states; Z98.42 Cataract extraction status, left eye; Z98.41 Cataract extraction status, right eye
CPT/HCPCS: 73501; 80048; 85025; 86850; 86891; 86900; 86901; 88300

== ENCOUNTER → 2023-04-24 | Outpatient (CLI) | payer MEDICARE ==
--- NOTE | 2023-04-24 14:10 | CT ---
EXAMINATION TYPE: CT left knee - [facility] Protocol DATE OF EXAM: 04/24/2023 COMPARISON: HISTORY: Pre surgical planning CT DLP: 1161 mGycm TECHNIQUE: Axial, sagittal and coronal noncontrast images are obtained. FINDINGS: There is bilateral hip prostheses which results in significant artifact. Within the pelvis there are changes of diverticulosis. Bladder is obscured. There is severe osteoarthritis with complete loss of joint space along the medial compartment. Modera te to severe loss of patellofemoral joint there is numerous osteophytes seen involving tricompartment spaces. There is a moderate-sized suprapatellar bursal fluid collection. Vascular calcifications are noted. T here is a popliteal fossa cyst measuring 2.7 cm. Limited assessment of the ankle demonstrates the ankle mortise to be intact and symmetric. IMPRESSION: 1. Preoperative planning for severe osteoarthritis of the left knee.
== END | disposition home or self-care (01) ==
LOC: RADCTMAIN 13:00
PROVIDERS: ATTEND Orthopaedic Surgery
DX: Z01.818 Encounter for other preprocedural examination (principal); M17.12 Unilateral primary osteoarthritis, left knee

== ENCOUNTER 2023-05-23 10:01 | Emergency (ER) | payer BC, MEDICARE ==
[2023-05-23 10:12] VITALS: TEMP 98.3
--- NOTE | 2023-05-23 10:59 | US ---
EXAMINATION TYPE: US venous doppler duplex LE LT DATE OF EXAM: 05/23/2023 10:48 AM COMPARISON: US 2018 CLINICAL INDICATION: Male, 72 years old with history of pain; Pain in left leg. No hx of DVT. Patient is taking aspirin. Hx recent left knee replacement 05/14/23. SIDE PERFORMED: Left TECHNIQUE: The lower extremity deep venous system is examined utilizing real time linear array sonog kerri with graded compression, doppler sonography and color-flow sonography. VESSELS IMAGED: Common Femoral Vein Deep Femoral Vein Greater Saphenous Vein * Femoral Vein Popliteal Vein Small Saphenous Vein * Proximal Calf Veins (* superficial vessels) Left Leg: No evidence of DVT. *Complex fluid seen within left popliteal fossa: 5.1 x 2.6 x 1.3 cm. IMPRESSION: No evidence for DVT.
--- NOTE | 2023-05-23 11:36 | ED ---
Recheck HPI - General Chief Complaint: Recheck/Abnormal Lab/Rx Stated Complaint: poss cellulitis Time Seen by Provider: 05/23/23 10:13 Source: patient, RN notes reviewed Mode of arrival: ambulatory Limitations: no limitations - History of Present Illness Initial Comments: 72-year-old male presents emergency Department chief complaint of left leg swelling and discomfort. Patient had knee surgery approximately a week ago by Dr. Blackburn. Patient states she's developed increasing swelling, redness. Patient's concerned about possible cellulitis. He states he is not suffering with stocking on his leg he has not been wearing compression stockings. Denies fevers or chills. He states she's been trying to elevate his leg as much as possible. Denies chest pain or shortness breath. - Related Data Home Medications Medication Instructions Recorded Confirmed Losartan Potassium 100 mg PO DAILY 06/29/18 05/03/19 Triamterene-Hctz 37.5-25Mg 1 cap PO DAILY 04/27/19 05/03/19 [Dyazide 37.5-25 Capsule] Previous Rx's Medication Instructions Recorded Aspirin 325 mg PO BID #60 tab 05/04/19 HYDROcodone/APAP 5-325MG [[place] 1 - 2 tab PO Q6HR PRN #56 tab 05/04/19 5-325] Sennosides [Senokot] 1 tab PO BID #60 tablet 05/04/19 Cephalexin [Keflex] 500 mg PO Q6HR #40 cap 05/23/23 Allergies Allergy/AdvReac Type Severity Reaction Status Date / Time No Known Allergies Allergy Verified 05/23/23 10:12 Review of Systems ROS Statement: Those systems with pertinent positive or pertinent negative responses have been documented in the HPI. ROS Other: All systems not noted in ROS Statement are negative. Past Medical History Past Medical History: Hypertension, Osteoarthritis (OA) History of Any Multi-Drug Resistant Organisms: None Reported Past Surgical History: Orthopedic Surgery Additional Past Surgical History / Comment(s): bilat ctr, lt arm sx, bilat hand trigger finger releases, lt knee sx, colonoscopy Past Anesthesia/Blood Transfusion Reactions: No Reported Reaction Past Psychological History: No Psychological Hx Reported Smoking Status: Former smoker Past Alcohol Use History: Occasional Past Drug Use History: None Reported - Past Family History Mother Family Medical History: No Reported History General Exam Limitations: no limitations General appearance: alert, in no apparent distress Head exam: Present: atraumatic, normocephalic, normal inspection Respiratory exam: Present: normal lung sounds bilaterally. Absent: respiratory distress, wheezes, rales, rhonchi, stridor Cardiovascular Exam: Present: regular rate, normal rhythm, normal heart sounds. Absent: systolic murmur, diastolic murmur, rubs, gallop, clicks Extremities exam: Present: other (Left leg there is surgical wound on the a nterior surface, there is moderate pitting edema left leg with mild erythema and tenderness with palpation. Pulses equal bilaterally) Course Vital Signs 05/23/23 10:09 Temperature 98.3 F Pulse Rate 85 Respiratory 20 Rate Blood Pressure 149/73 O2 Sat by Pulse 99 Oximetry Medical Decision Making - Medical Decision Making Was pt. sent in by a medical professional or institution (, PA, SWIMMING POOL SERVICE TECHNICIAN, urgent care, hospital, or retirement...) When possible be specific @ -No Did you speak to anyone other than the patient for history (EMS, parent, family, police, friend...)? What history was obtained from this source @ -No Did you review nursing and triage notes (agree or disagree)? Why? @ -I reviewed and agree with nursing and triage notes Were old charts reviewed (outside hosp., previous admission, EMS record, old EKG, old radiological studies, urgent care reports/EKG's, retirement records)? Report findings @ -No old charts were reviewed Differential Diagnosis (chest pain, altered mental status, abdominal pain women, abdominal pain men, vaginal bleeding, weakness, fever, dyspnea, syncope, headache, dizziness, GI bleed, back pain, seizure, CVA, palpatations, mental health, musculoskeletal)? @ -Cellulitis, leg edema, DVT. EKG interpreted by me (3pts min.). @ -As above X-rays interpreted by me (1pt min.). @ -None done CT interpreted by me (1pt min.). @ -None done U/S interpreted by me (1pt. min.). @ -US on the left leg is negative for acute DVT there is a complex fluid collection the popliteal fossa. What testing was considered but not performed or refused? (CT, X-rays, U/S, labs)? Why? @ -None What meds were considered but not given or refused? Why? @ -None Did you discuss the management of the patient with other professionals (professionals i.e. , PA, SWIMMING POOL SERVICE TECHNICIAN, lab, RT, psych nurse, long term care social worker, rim buster, teacher, customs and immigration officer, bottle caser)? Give summary @ -No Was smoking cessation discussed for >3mins.? @ -No Was critical care preformed (if so, how long)? @ -No Were there social determinants of health that impacted care today? How? (Homelessness, low income, unemployed, alcoholism, drug addiction, transportation, low edu. Level, literacy, decrease access to med. care, [facility], rehab)? @ -No Was there de-escalation of care discussed even if they declined (Discuss DNR or withdrawal of care, Hospice)? DNR status @ -No What co-morbidities impacted this encounter? (DM, HTN, Smoking, COPD, CAD, Cancer, CVA, ARF, Chemo, Hep., AIDS, mental health diagnosis, sleep apnea, morbid obesity)? @ -None Was patient admitted / discharged? Hospital course, mention meds given and route, prescriptions, significant lab abnormalities, going to OR and other pertinent info. @ -Discharge. Is negative for acute DVT. Patient has extensive leg swelling which required to wear compression stocking. Patient is concerned about cellulitis in which patient is postsurgical placed on Keflex and close follow- up. Return parameters were discussed. Undiagnosed new problem with uncertain prognosis? @ -No Drug Therapy requiring intensive monitoring for toxicity (Heparin, Nitro, Insulin, Cardizem)? @ -No Were any procedures done? @ -No Diagnosis/symptom? @ -Leg edema Acute, or Chronic, or Acute on Chronic? @ -Acute Uncomplicated (without systemic symptoms) or Complicated (systemic symptoms)? @ -Uncomplicated Side effects of treatment? @ -No] Exacerbation, Progression, or Severe Exacerbation? @ -[No] Poses a threat to life or bodily function? How? (Chest pain, USA, CT, pneumonia, PE, COPD, DKA, ARF, appy, cholecystitis, CVA, Diverticulitis, Homicidal, Suicidal, threat to staff... and all critical care pts) @ -[No] Disposition Clinical Impression: Leg edema, left Disposition: HOME SELF-CARE Condition: Stable Instructions (If sedation given, give patient instructions): Leg Edema (ED) Additional Instructions: Please return to the Emergency Department if symptoms worsen or any other concerns. Prescriptions: Cephalexin [Keflex] 500 mg PO Q6HR #40 cap Is patient prescribed a controlled substance at d/c from ED?: No Referrals: Jaime Mendez DO [Primary Care Provider] - 1-2 days Time of Disposition: 11:36
[2023-05-23 11:52] VITALS: BP 169/79; PULSE 72; RESP 18
== END 2023-05-23 11:52 | disposition home or self-care (01) ==
LOC: EC 10:01
DX: R60.0 Localized edema (principal); I10 Essential (primary) hypertension; Z87.891 Personal history of nicotine dependence
CPT/HCPCS: 99283

== ENCOUNTER → 2023-09-10 | Outpatient (CLI) | payer MEDICARE ==
--- NOTE | 2023-09-11 09:54 | CT ---
EXAMINATION TYPE: CT right knee - [facility] Protocol CT DLP: 893 mGycm, Automated exposure control for dose reduction was used. DATE OF EXAM: 09/10/2023 1:25 PM COMPARISON: None CLINICAL INDICATION:Male, 72 years old with history of M25.561 PAIN IN RIGHT KNEE; [facility], rt knee, [facility] protocol TECHNIQUE: Axial images were obtained of the CT right knee - [facility] Protocol, Additional coronal and sa gittal reformatted images and soft tissue and bone window were obtained for review. Contrast used: mL of , (None if empty) Oral contrast used: (None if empty) FINDINGS: The visualized portion of the hips demonstrate post arthroplasty changes bilaterally with s treak artifact. Hardware appears intact.. No acute intrapelvic process. The bony structures of the pe lvis are intact. The visualized knee demonstrates osteophyte formation of the tibial plateau the patella and femoral c ondyles. There is joint space narrowing and subchondral sclerosis. No evidence of fracture. Heterogen ous joint effusion is noted. Visualized ankle demonstrates multifocal osteoarthrosis changes with osteophyte formation and mild nikko int space narrowing. No evidence of fractures. Atherosclerosis of the arterial vasculature. IMPRESSION: End-stage osteoarthrosis changes of the left knee.
== END | disposition home or self-care (01) ==
LOC: RADCTMAIN 12:52
PROVIDERS: ATTEND Orthopaedic Surgery
DX: M17.12 Unilateral primary osteoarthritis, left knee (principal)

== ENCOUNTER 2024-09-15 08:33 | Day surgery (SDC) | payer MEDICARE ==
[~2024-09-15 08:33] MED LIST changes: -ACETAMINOPHEN TAB 500 MG TAB PO ONE; -DEXAMETHASONE SOD PHOSPHATE 10 MG/ML 1 ML VIAL IV ONE; -HYDROmorphone 0.5 MG/0.5 ML SYRINGE IVP PRN; +LACTATED RINGERS 1,000 ML IV SCH; -MELOXICAM 7.5 MG TAB PO ONE; -MIDAZOLAM 2 MG/2 ML VIAL IV PRN; -ONDANSETRON 4 MG/2 ML VIAL IVP ONE; -ROPIVACAINE 246.25 MG, EPINEPHrine 0.5 MG, KETOROLAC 30 MG, cloNIDine HCL/PF 80 MCG, WA... MISCELLANE ONE; +SODIUM CHLORIDE 0.9% 500 ML 500 ML IV SCH; -TRANEXAMIC ACID 1,000 MG in SODIUM CHLORIDE 0.9% 100 ML IVPB ONE
[2024-09-15] MEDS: SODIUM CHLORIDE 0.9% 500 ML 500 ML IV ONE (09:15)
[2024-09-15 09:30] VITALS: TEMP 97.8
[2024-09-15] MEDS ORDERED: PROPOFOL 10 MG/ML 20 ML VIAL IV ONE (09:56)
[2024-09-15] MEDS ORDERED: LIDOCAINE 1% INJ 10MG/ML (20 ML MDV) ONE (09:56)
[2024-09-15 10:02] LABS: African American GFR (CKD) 70 (>60 ml/min/1.73 sqM); Anion Gap 6 mmol/L; Blood Urea Nitrogen 18 mg/dL (9-20); Calcium 9.7 mg/dL (8.4-10.2); Carbon Dioxide 29 mmol/L (22-30); Chloride 102 mmol/L (98-107); Glucose 110 mg/dL (74-99); Non-African American GFR(CKD) 60 (>60 ml/min/1.73 sqM); Potassium 4.4 mmol/L (3.5-5.1); Sodium 137 mmol/L (137-145)
[2024-09-15] MEDS: BENZOCAINE SPRAY 1 EACH MM ONE (10:03)
[2024-09-15 10:37] VITALS: RESP 16
[2024-09-15 11:37] VITALS: PULSE 83
[2024-09-15 11:58] VITALS: BP 156/89
--- NOTE | 2024-09-16 04:22 | ECHOT ---
TRANSESOPHAGEAL ECHOCARDIOGRAM INDICATION: Persistent atrial fibrillation, rule out intracardiac thrombus. PROCEDURE NOTE: After obtaining informed consent, transesophageal echocardiogram was performed in left lateral position using an Omniplane probe. Local and IV sedation were obtained by the call center assistant. The patient tolerated the procedure well without any obvious immediate complications. FINDINGS: 1. There is no intracardiac thrombus within the left atrial appendage, left atrium, right atrium, right ventricle, or left ventricle. 2. There is biatrial enlargement. 3. Right ventricle appears normal. 4. Left ventricle appears mildly enlarged with diffuse global hypokinesis and an ejection fraction of 35% to 40%. Mitral valve appears anatomically normal. There is dilatation of the mitral anulus with moderate central mitral regurgitation. There is mild tricuspid regurgitation noted. Aortic valve is a 3-leaflet valve. There is no evidence of aortic stenosis or regurgitation. Aortic root appears normal. Interatrial septum, there is no evidence of ziit-so-bnupu shunt by color- flow Doppler or flyto-sq-fdug shunt by agitated saline contrast study. CONCLUSIONS: No intracardiac thrombus, moderate central mitral regurgitation, cardiomyopathy with moderate to severe LV dysfunction. PLAN: The patient will undergo cardioversion. MMODL / IJN: [id number] /
--- NOTE | 2024-09-16 08:13 | PCN ---
PROCEDURE NOTE CARDIOVERSION NOTE: INDICATION: Persistent atrial fibrillation. PROCEDURE NOTE: After ruling out intracardiac thrombus with a transesophageal echo, the patient underwent cardioversion using 150 joules of synchronized DC current. The patient is on Eliquis for anticoagulation. IESHA / RILEYN: [id number] /
== END 2024-09-15 12:03 | disposition home or self-care (01) ==
LOC: OR 08:33
PROVIDERS: ATTEND Internal Medicine Cardiovascular Disease
DX: I48.19 Other persistent atrial fibrillation (principal); I34.0 Nonrheumatic mitral (valve) insufficiency; F17.210 Nicotine dependence, cigarettes, uncomplicated; Z79.01 Long term (current) use of anticoagulants; Z79.899 Other long term (current) drug therapy
CPT/HCPCS: 93312; 93320; 93325; 92960; 80048; J2003; J2704

== ENCOUNTER 2025-04-27 13:14 | Day surgery (SDC) | payer MEDICARE ==
[~2025-04-27 13:14] MED LIST changes: +HYDROmorphone 0.5 MG/0.5 ML SYRINGE IVP PRN; -LACTATED RINGERS 1,000 ML IV SCH; -SODIUM CHLORIDE 0.9% 500 ML 500 ML IV SCH
[2025-04-27 14:11] LABS: Basophils # (A) 0.07 10*3/uL (0.00-0.10); Basophils % (A) 0.9 %; Eosinophils # (A) 0.24 10*3/uL (0.04-0.35); Eosinophils % (A) 3.1 %; HCT 36.1 % (39.6-50.0); HGB 12.5 g/dL (13.0-17.0); Lymphocytes # (A) 1.66 10*3/uL (0.90-5.00); Lymphocytes % (A) 21.3 %; MCH 33.9 pg (27.0-32.0); MCHC 34.6 g/dL (32.0-37.0); MCV 97.8 fL (80.0-97.0); Monocytes # (A) 1.02 10*3/uL (0.20-1.00); Monocytes % (A) 13.1 %; Neutrophils # (A) 4.80 10*3/uL (1.80-7.70); Neutrophils % (A) 61.3 %; Platelet Count 194 10*3/uL (140-440); RBC 3.69 10*6/uL (4.40-5.60); RDW 12.5 % (11.5-14.5); WBC 7.81 10*3/uL (4.50-10.00)
[2025-04-27 14:23] LABS: ALT 24 U/L (4-49); AST 28 U/L (17-59); African American GFR (CKD) 61 (>60 ml/min/1.73 sqM); Albumin 3.8 g/dL (3.5-5.0); Alkaline Phosphatase 94 U/L (38-126); Anion Gap 8 mmol/L; Blood Urea Nitrogen 26 mg/dL (9-20); Calcium 9.6 mg/dL (8.4-10.2); Carbon Dioxide 23 mmol/L (22-30); Chloride 108 mmol/L (98-107); Glucose 92 mg/dL (74-99); Non-African American GFR(CKD) 53 (>60 ml/min/1.73 sqM); Potassium 4.6 mmol/L (3.5-5.1); Sodium 139 mmol/L (137-145); Total Protein 6.7 g/dL (6.3-8.2)
[2025-04-27] MEDS ORDERED: fentaNYL (PF) 50 MCG/ML 2 ML AMP ONE (15:05)
[2025-04-27] MEDS ORDERED: PROPOFOL 10 MG/ML 20 ML VIAL IV ONE (15:05)
[2025-04-27] MEDS ORDERED: ISOPROTERENOL 250 MCG/1.25 ML SYR IV ONE (15:05)
[2025-04-27] MEDS: IV FLUID CONTINUATION 1,000 ML IV ONE (15:05)
[2025-04-27] MEDS ORDERED: SUCCINYLCHOLINE CHLORIDE 200 MG/10 ML VIAL IV ONE (15:05)
[2025-04-27] MEDS ORDERED: ROCURONIUM 10 MG/ML (5 ML VIAL) IV ONE (15:05)
[2025-04-27] MEDS ORDERED: HEPARIN SODIUM,PORCINE 10,000 UNIT/ML 1 ML VIAL ONE (15:05)
[2025-04-27] MEDS ORDERED: HEPARIN SODIUM,PORCINE 5,000 UNIT/ML 1 ML VIAL ONE (15:05)
[2025-04-27] MEDS ORDERED: MIDAZOLAM 2 MG/2 ML VIAL ONE (15:05)
[2025-04-27] MEDS ORDERED: PHENYLEPHRINE 10 MG/ML VIAL ONE (15:05)
[2025-04-27] MEDS: HEPARIN SOD,PORK IN 0.45% NACL 25,000 UNIT in 0.45% NACL 1 250ML.BAG IV ONE (15:27)
--- NOTE | 2025-04-27 15:38 | P.HPCAR ---
History of Present Illness This is Dr. Jacobson dictating an H/P on this patient The patient was interviewed and examined IMPRESSION / ASSESSMENT: Atrial fibrillation, persistent Failed amiodarone History of atrial flutter Global hypokinesis with ejection fraction of 35 to 40% during atrial fibrillation PLAN: A-fib ablation Heparin dose calculated Continue Eliquis HPI Patient denies any fever chills cough expectoration No angina no undue shortness of breath No dizziness no lightheadedness no syncope ROS: No fever chills or rigors, no cough, phlegm or expectoration, no nausea, vomiting or diarrhea, no hematuria, dysuria, no musculoskeletal complaints, no strokes or seizures, no skin lesions. EXAMINATION: 172/80 mmHg and 149/69 mmHg afebrile pulse rate in the 60s and regular No JVD No lower extremity edema Normal heart sounds no murmurs no gallops or rubs Clear lungs REVIEW OF LABS, ECG & MEDICAL DATA Hemoglobin 12.5 normal white count platelet count 194,000 Electrolytes normal Creatinine 1.3 TSH 1.3 normal Physical Exam Vitals: Vital Signs Temp Pulse Resp BP BP Pulse Ox 04/27/25 13:54 98.5 F 61 16 172/80 148/69 97 Intake and Output 04/27/25 04/27/25 04/27/25 06:59 14:59 22:59 Other: Weight 109 kg Past Medical History Past Medical History: Atrial Fibrillation, GERD/Reflux, Hypertension, Osteoarthritis (OA) Additional Past Medical History / Comment(s): occ. heartburn History of Any Multi-Drug Resistant Organisms: None Reported Past Surgical History: Orthopedic Surgery Additional Past Surgical History / Comment(s): bilat ctr, lt arm sx, bilat hand trigger finger releases, bilat. knee & hip arthroscopies, colonoscopy, cardioversion. Past Anesthesia/Blood Transfusion Reactions: No Reported Reaction Additional Past Anesthesia/Blood Transfusion Reaction / Comment(s): No hx of blood transfusion to date. Past Psychological History: No Psychological Hx Reported Smoking Status: Former smoker Past Alcohol Use History: Occasional Additional Past Alcohol Use History / Comment(s): QUIT SMOKING 2015, smoked 1ppd x 30 yrs. 7-8 drinks/week Past Drug Use History: None Reported - Past Family History Mother Family Medical History: No Reported History Physical Examination Vital Signs Temp Pulse Resp BP BP Pulse Ox 04/27/25 13:54 98.5 F 61 16 172/80 148/69 97 Intake and Output 04/27/25 04/27/25 04/27/25 06:59 14:59 22:59 Other: Weight 109 kg Results 04/27/25 13:40 04/27/25 13:40 Cardiac Enzymes 04/27/25 Range/Units 13:40 AST 28 (17-59) U/L CBC 04/27/25 Range/Units 13:40 WBC 7.81 (4.50-10.00) 10*3/uL RBC 3.69 L (4.40-5.60) 10*6/uL Hgb 12.5 L (13.0-17.0) g/dL Hct 36.1 L (39.6-50.0) % Plt Count 194 (140-440) 10*3/uL Comprehensive Metabolic Panel 04/27/25 Range/Units 13:40 Sodium 139 (137-145) mmol/L Potassium 4.6 (3.5-5.1) mmol/L Chloride 108 H (98-107) mmol/L Carbon Dioxide 23 (22-30) mmol/L BUN 26 H (9-20) mg/dL Creatinine 1.33 H (0.66-1.25) mg/dL Glucose 92 (74-99) mg/dL Calcium 9.6 (8.4-10.2) mg/dL AST 28 (17-59) U/L ALT 24 (4-49) U/L Alkaline Phosphatase 94 (38-126) U/L Total Protein 6.7 (6.3-8.2) g/dL Albumin 3.8 (3.5-5.0) g/dL Current Medications Generic Name Dose Route Start Last Admin Trade Name Freq PRN Reason Stop Dose Admin Hydromorphone HCl 0.5 mg 04/27/25 07:00 Hydromorphone 0.5 Mg/0.5 Ml Syringe IVP 04/27/25 23:00 Q5M PRN Phase 1 or 2 - Pain Control Sodium Chloride 1,000 mls @ 20 mls/hr 04/27/25 06:09 Saline 0.9% IV 05/27/25 06:08 .Q24H VIVI Lactated Ringer's 1,000 mls @ 20 mls/hr 04/27/25 06:09 Lactated Ringers IV 05/27/25 06:08 .Q24H VIVI Intake and Output 04/27/25 04/27/25 04/27/25 06:59 14:59 22:59 Other: Weight 109 kg Patient Weight 04/28/25 06:59 Weight 109 kg 04/27/25 13:40 04/27/25 13:40
[2025-04-27] MEDS: LIDOCAINE 1% INJ 10MG/ML (20 ML MDV) SQ ONE (15:46)
[2025-04-27] MEDS: IOPAMIDOL-370 100ML BTL INJ ONE (17:44)
[2025-04-27] MEDS ORDERED: ACETAMINOPHEN TAB 325 MG TAB PO PRN (18:11)
[2025-04-27] MEDS: hydrALAZINE HCL 20 MG/ML 1 ML VIAL IVP STA (18:27)
--- NOTE | 2025-04-27 18:33 | P.EPPROC ---
- EP Procedure Note Electrophysiology Procedure Note: PROCEDURE A. fib ablation with PVI at an antral level, left atrial septal ablation and left atrial roof ablation DIAGNOSIS Persistent atrial fibrillation, symptomatic, refractory to therapy with amiodarone RESULT No left atrial appendage mass seen on intracardiac echo, dilated RA, enlarged RV Very complex right-sided pulmonary venous anatomy with a separate right middle pulmonary vein with 2 large tributaries Large left inferior pulmonary vein Large right superior pulmonary vein Successful A. fib ablation/pulmonary vein isolation of all veins using cryo- ablation Complete entrance block in all 4 veins confirmed No evidence for phrenic nerve injury Esophageal deflection YES PROCEDURE DETAILS Written informed consent prior to procedure. Patient brought to the EP lab. General anesthesia given. Heparin administered. A city maintained above 300 seconds Both groins prepped and draped per protocol and venous sheaths placed. Esophagus intubated, circa catheter for temperature monitoring an endoscope for possible esophageal deflection. Phrenic nerve monitoring performed. Esophageal temperature monitoring performed. Esophageal deflection performed if circa catheter overlapping with the balloon or circa temperature less than 27.5°C Intracardiac echocardiography performed. Pericardium evaluated. Left atrial appendage evaluated. Left atrium evaluated along with pulmonary veins Transseptal catheterization performed under fluoroscopic guidance and intracardiac echo guidance Cryoablation sheath exchanged, balloon catheter along with achieve catheter placed in the left atrium. Pulmonary veins isolated in the following sequence: Left superior pulmonary vein followed by left inferior pulmonary vein, followed by right inferior pulmonary vein and lastly right superior pulmonary vein. Phrenic nerve stimulation along with capture thresholds within the SVC and right superior pulmonary vein to identify the phrenic nerve proximity to the cryo- balloon. Pulmonary veins isolated and confirmed with entrance and exit block. Phrenic nerve integrity confirmed at the end of the procedure Ablation of the left atrial roof performed with sequential lesions from the left superior to the right superior pulmonary veins. Ablation of the electrograms confirmed Ablation of the left atrial septum performed with cannulation of the superior branch of the right inferior AND the inferior branch of the right A large middle vein with 2 tributaries A large inferior vein with 2 tributaries A very large left inferior vein requiring multiple ablations On account of the complexity of the veins and the tributaries multiple shorter lesions had to be applied to achieve entry-level isolation around the entire right sided pulmonary venous plexus and then the left atrial septum. This took extra time In addition transseptal access was difficult since this was Lucas fossa ovalis and extra effort was required. 2 separate attempts were made before successfully accessing the left atrial cavity to achieve ablation of the posterior septum of the left atrium. Ablation of electrograms confirmed Diagnostic catheters for the high right atrium, His bundle, coronary sinus placed. LA and RA pressures recorded LA pressure: 08/01/40 Diagnostic EP study with coronary sinus pacing and recording Baseline measurements: AH 71 ms, HV 45 ms Sinus cycle length 1145 ms, NC interval 144 ms, QRS 82 ms and QT 472 ms High dose Isopril infused. No atrial fibrillation induced Venous sheaths were removed and hemostasis assured with a closure device. Patient extubated and transferred to recovery Increase procedural time During ablation multiple attempts had to be made to move the esophagus a safe distance of the from the pulmonary vein draining cryoablation, to avoid excessive thermal cooling of the esophagus This took extra time and effort to keep the esophagus a safe distance away from the cryoablation balloon. Very complex right-sided pulmonary venous anatomy. Very large right superior pulmonary vein with tributary draining at the level of the roof chest at the ost ium/antrum of the PROCEDURES PERFORMED Diagnostic EP study CS pacing and recording Left and right transseptal catheterization Catheter the mapping of the tachycardia Intracardiac echocardiography Pulmonary vein isolation with transseptal and comprehensive EPS, [id number] Extended procedure duration Drug infusion, +[id number] Left atrial roof line, +[id number] Linear ablation, left atrium, +[id number]
--- NOTE | 2025-04-27 18:36 | P.PRLE ---
RE: Velasquez Galindo Dear Dr. Vanessa Eng underwent an A-fib ablation with entry-level PVI, left atrial septal ablation and left atrial roof ablation successfully He has discontinued amiodarone for several months now I would continue Eliquis uninterrupted for the first 2 months post ablation to avoid and minimize the risk of stroke All his other cardiac medications continue unchanged Thank you for entrusting me with the care of the patient Warm regards Sincerely Ok Jacobson
[2025-04-27] MEDS: hydrALAZINE HCL 20 MG/ML 1 ML VIAL IVP ONE (18:50)
[2025-04-27] MEDS: ACETAMINOPHEN IV (For NPO) 1,000 MG in EMPTY BAG 1 BAG IVPB ONE (23:40)
[2025-04-27] MEDS: ONDANSETRON 4 MG/2 ML VIAL IVP ONE (23:40)
[2025-04-27] MEDS: DEXAMETHASONE SOD PHOSPHATE 4 MG/ML 1 ML VIAL IV ONE (23:40)
[2025-04-27] MEDS: LACTATED RINGERS 1,000 ML IV SCH (23:41)
[2025-04-27] MEDS: SODIUM CHLORIDE 0.9% 1,000 ML IV SCH (23:41)
[2025-04-27] MEDS: APIXABAN 5 MG TAB PO SCH (23:51)
[2025-04-28 07:32] VITALS: BP 143/68; PULSE 65; RESP 16; TEMP 98.8
[2025-04-28] MEDS: FUROSEMIDE 80 MG TAB PO SCH (09:23)
[2025-04-28] MEDS: METOPROLOL SUCCINATE (ER) 100 MG TAB.ER.24H PO SCH (09:23)
[2025-04-28] MEDS: LOSARTAN 25 MG TAB PO SCH (09:23)
--- NOTE | 2025-04-28 10:15 | DS ---
DISCHARGE SUMMARY HOSPITAL COURSE: Mr. Galindo has persistent atrial fibrillation. He underwent successful atrial fibrillation ablation with PVI, left atrial septal ablation, left atrial roof ablation. He is doing well this morning. His sore throat has improved since yesterday. He has no pleuritic chest discomfort. No dizziness or lightheadedness. He has ambulated to the bathroom. His groins have healed well. No hematoma, no swelling. IMPRESSION: Persistent atrial fibrillation, status post af atrial fibrillation ablation. PLAN: Discharge home today. Continue uninterrupted anticoagulation with Eliquis. Continue antihypertensive therapy and follow up with Dr. Vargas. His 12-lead EKG today is normal. MMODL / IJN: [id number] /
== END 2025-04-28 10:52 | disposition home or self-care (01) ==
LOC: CATHEP 13:14 → 6NMEDSUR 17:51 → CATHEP 04-28 10:52
PROVIDERS: ATTEND Internal Medicine Clinical Cardiac Electrophysiology
DX: I48.19 Other persistent atrial fibrillation (principal); I10 Essential (primary) hypertension; M19.90 Unspecified osteoarthritis, unspecified site; Z87.891 Personal history of nicotine dependence; Z79.01 Long term (current) use of anticoagulants; Z79.899 Other long term (current) drug therapy
CPT/HCPCS: 93623; 93656; 93657; 86900; 86901; 80053; 84443; 85025; 86850; C1894; C1769; C1760 ×3; C1730 ×2; C1733; C1766; J0360; J2003; Q9967; J1644